=== PATIENT | female | born 1945 | race Caucasian/White ===

== ENCOUNTER 2017-08-30 13:11 | Inpatient (IN) | payer MEDICARE, BC ==
[~2017-08-30] VITALS: Ht 165.1 cm; Wt 72.6 kg
[~2017-08-30 13:11] MED LIST: ASPI81EC; BUPR100; CALCA500CH; CONEST.625; LAMICTAL; METO25ER; MULVITA; ONDA8ODT MM; OXCA300; POTASSIUM CHLORIDE 10 MEQ; RIVA1.5; TOCO1000; TRIHYD253B; VITAMIN B
[2017-09-27] MEDS ORDERED: LOSARTAN POTAS100 MG PO (11:18)
[2017-09-27] MEDS ORDERED: LOSA50 PO (11:18)
[2017-09-27] MEDS ORDERED: AMLO5 PO (11:19)
[2017-09-27] MEDS ORDERED: METO100ER PO (11:52)
[2017-09-27] MEDS ORDERED: BUSP5 PO (11:52)
[2017-09-27] MEDS ORDERED: POTCHL10ER PO (11:53)
[2017-09-27] MEDS ORDERED: ETAN50I SC (11:53)
[2017-09-27] MEDS ORDERED: CALCA400CH PO (11:54)
[2017-09-27] MEDS ORDERED: GLUC500 PO (11:54)
[2017-09-27] MEDS ORDERED: Hair, Skin & N1 EACH PO ×2 (11:54→11:55)
[2017-09-27] MEDS ORDERED: PROBIOTIC1 EAC1 PO (11:55)
[2017-09-27] MEDS ORDERED: IRON150C PO (11:55)
[2017-09-27] MEDS ORDERED: OMEGA RED PO (11:55)
[2017-09-27] MEDS ORDERED: Vitamin B Comple1 EA PO (11:56)
[2017-09-27] MEDS ORDERED: FAMO20 PO (11:56)
[2017-09-27] MEDS ORDERED: CHOL10002 PO (11:56)
[2017-09-27] MEDS ORDERED: FOLI400 PO (11:57)
[2017-09-27] MEDS ORDERED: VITAMIN B122500 MC1 PO (11:57)
[2017-09-27] MEDS ORDERED: ASPI81CH PO (11:57)
[2017-09-27] MEDS ORDERED: ACET120S PO (11:58)
[2017-09-27] MEDS ORDERED: VITAMIN C500 M1 PO (11:58)
[2017-09-27] MEDS ORDERED: ZINC15 PO (11:59)
[2017-09-27] MEDS ORDERED: VITAMIN E400 UNI1 PO (11:59)
[2017-09-27] MEDS ORDERED: MAGOXI400 PO (12:00)
[2017-09-27] MEDS ORDERED: Lysine500 MG PO (12:00)
[2017-10-19 05:21] LABS: BASOPHILS ABSOLUTE AUTO 0.01 K/mm3 (0.00-0.23); BASOPHILS PERCENT AUTO 0 % (0-2); EOSINOPHILS PERCENT AUTO 0 % (0-6); Hematocrit 33.4 % (33.0-51.0); Hemoglobin 10.8 g/dL (11.5-16.0); IMMATURE GRAN ABSOLUTE AUTO 0.02 K/mm3 (0.00-0.10); IMMATURE GRAN PERCENT AUTO 0 % (0-1); LYMPHOCYTES ABSOLUTE AUTO 1.23 K/mm3 (0.84-5.20); LYMPHOCYTES PERCENT AUTO 12 % (21-46); MONOCYTES ABSOLUTE AUTO 0.64 K/mm3 (0.16-1.47); MONOCYTES PERCENT AUTO 6 % (4-13); Mean Corpuscular HGB Conc 32.3 g/dL (31.5-36.5); Mean Corpuscular Volume 99 fL (80-100); Mean Platelet Volume 9.5 fL (9.1-12.4); NEUTROPHILS ABSOLUTE AUTO 8.31 K/mm3 (1.96-9.15); NEUTROPHILS PERCENT AUTO 81 % (41-73); Platelet Count 193 K/mm3 (150-400); RDW Coefficient Variation 13.1 % (11.7-14.2); RDW Standard Deviation 46.7 fL (35.1-46.3); Red Blood Cell Count 3.38 M/mm3 (3.80-5.20); White Blood Cell Count 10.21 K/mm3 (4.00-11.30)
[2017-10-19 05:39] LABS: Anion Gap 9 mmol/L (6-16); Blood Urea Nitrogen 17 mg/dL (8-24); Bun/Creatinine Ratio 19.3 (12.0-20.0); CO2, Blood 24 mmol/L (21-32); Calcium, Blood 8.7 mg/dL (8.5-10.1); Chloride, Blood 107 mmol/L (98-108); Creatinine, Blood 0.88 mg/dL (0.40-1.00); Glomerular Filtration Rate >60 (60-); Glucose, Blood 132 mg/dL (70-99); Magnesium, Blood 1.6 mg/dL (1.6-2.4); Potassium, Blood 4.2 mmol/L (3.5-5.5); Sodium, Blood 140 mmol/L (136-145)
[2017-10-19] MEDS ORDERED: OXYC5 PO (13:09)
[2017-10-19] MEDS ORDERED: ASPI325 PO (13:09)
[2017-10-19] MEDS ORDERED: DOCU100 PO (13:10)
== END 2017-10-19 15:30 | disposition home or self-care (01) | DRG 470 ==
LOC: SURS 10-18 05:51 → PRE IP 10-18 07:30 → SURS 10-18 11:16
PROVIDERS: Orthopaedic Surgery
PROC: 8E0YXBZ Computer Assisted Procedure of Lower Extremity (ICD-10-PCS; 2017-10-18)
PROC: 0SRB04Z Replacement of Left Hip Joint with Ceramic on Polyethylene Synthetic Substitute, Open Approach (ICD-10-PCS; principal; 2017-10-18 07:30)
DX: M16.12 Unilateral primary osteoarthritis, left hip (principal); I10 Essential (primary) hypertension; M06.9 Rheumatoid arthritis, unspecified; Z79.82 Long term (current) use of aspirin; Z79.51 Long term (current) use of inhaled steroids; Z79.899 Other long term (current) drug therapy; Z88.1 Allergy status to other antibiotic agents; Z88.5 Allergy status to narcotic agent; Z88.8 Allergy status to other drugs, medicaments and biological substances; Z87.891 Personal history of nicotine dependence
CPT/HCPCS: 36415; 72170; 80048; 83735; 85025; 86850; 86900; 86901; 88300; 94762; 97110; 97116; 97161; 97165; 97530; 97535; C1713; C1776; G8978; G8979; G8987; G8988; G8989; J0171; J0690; J0735; J1100; J1885; J2405; J2795; J3010; J7120

== ENCOUNTER → 2020-04-07 | Outpatient (CLI) | payer BC ==
[~2020-04-07] MED LIST changes: +ACET120S PO; +AMLO5 PO; +ASPI325 PO; +ASPI81CH PO; +BUSP5 PO; +CALCA400CH PO; +CHOL10002 PO; +DOCU100 PO; +ETAN50I SC; +FAMO20 PO; +FOLI400 PO; +GLUC500 PO; +Hair, Skin & N1 EACH PO; +IRON150C PO; +LOSA50 PO; +LOSARTAN POTAS100 MG PO; +Lysine500 MG PO; +MAGOXI400 PO; +METO100ER PO; +OMEGA RED PO; +OXYC5 PO; +POTCHL10ER PO; +PROBIOTIC1 EAC1 PO; +VITAMIN B122500 MC1 PO; +VITAMIN C500 M1 PO; +VITAMIN E400 UNI1 PO; +Vitamin B Comple1 EA PO; +ZINC15 PO
== END | disposition home or self-care (01) ==
LOC: OLS 16:04 → LAB 16:04 → LAB SHORT 16:04
DX: N39.0 Urinary tract infection, site not specified (principal)
CPT/HCPCS: 87077; 87086; 87186

== ENCOUNTER → 2020-12-17 | Outpatient (CLI) | payer BC ==
[2020-12-18 15:07] LABS: SARS COV-2 IGG AB Positive (Negative); SARS COV-2 IGM AB Positive (Negative)
== END ==
LOC: LAB SHORT 18:37 → LAB 18:37
PROVIDERS: Physician Assistant
DX: Z01.812 Encounter for preprocedural laboratory examination (principal); U07.1 COVID-19
CPT/HCPCS: 86769

== ENCOUNTER 2021-06-19 13:23 | Inpatient (IN) | payer MEDICARE, BC ==
[~2021-06-19] VITALS: Ht 165.1 cm; Wt 55.8 kg
[2021-06-19 15:49] LABS: BASOPHILS ABSOLUTE AUTO 0.06 K/mm3 (0.00-0.23); BASOPHILS PERCENT AUTO 1 % (0-2); EOSINOPHILS ABSOLUTE AUTO 0.17 K/mm3 (0.00-0.68); EOSINOPHILS PERCENT AUTO 2 % (0-6); Hemoglobin 13.5 g/dL (11.5-16.0); IMMATURE GRAN ABSOLUTE AUTO 0.02 K/mm3 (0.00-0.10); IMMATURE GRAN PERCENT AUTO 0 % (0-1); LYMPHOCYTES PERCENT AUTO 38 % (21-46); MONOCYTES ABSOLUTE AUTO 0.58 K/mm3 (0.16-1.47); MONOCYTES PERCENT AUTO 7 % (4-13); Mean Corpuscular HGB 31.2 pg (26.0-34.0); Mean Corpuscular HGB Conc 32.1 g/dL (31.5-36.5); Mean Corpuscular Volume 97 fL (80-100); Mean Platelet Volume 9.8 fL (9.1-12.4); NEUTROPHILS ABSOLUTE AUTO 4.44 K/mm3 (1.96-9.15); NEUTROPHILS PERCENT AUTO 53 % (41-73); Platelet Count 247 K/mm3 (150-400); RDW Coefficient Variation 11.6 % (11.7-14.2); RDW Standard Deviation 41.6 fL (35.1-46.3); Red Blood Cell Count 4.33 M/mm3 (3.80-5.20); White Blood Cell Count 8.47 K/mm3 (4.00-11.30)
[2021-06-19 16:01] LABS: Alanine Aminotransfer (ALT/SGP 105 U/L (12-78); Albumin/Globulin Ratio 0.6 (0.8-1.8); Alk Phos 87 U/L (50-136); Anion Gap 2 mmol/L (6-16); Aspartate Aminotrans (AST/SGOT 278 U/L (12-37); Bilirubin, Total 0.5 mg/dL (0.1-1.0); Blood Urea Nitrogen 20 mg/dL (8-24); Bun/Creatinine Ratio 25.8 (12.0-20.0); CO2, Blood 26 mmol/L (21-32); Calcium, Blood 9.2 mg/dL (8.5-10.1); Chloride, Blood 109 mmol/L (98-108); Creatinine, Blood 0.78 mg/dL (0.40-1.00); Glomerular Filtration Rate >60 (60-); Glucose, Blood 115 mg/dL (70-99); Potassium, Blood 3.9 mmol/L (3.5-5.5); Sodium, Blood 137 mmol/L (136-145)
[2021-06-19 16:19] LABS: International Normalized Ratio 0.99; Prothrombin Time Results 10.4 Sec (9.7-11.5)
[2021-06-19 16:48] LABS: Source, Urine Catheter
[2021-06-19 16:49] LABS: Influenza A, PCR NEGATIVE (NEGATIVE); Influenza B, PCR NEGATIVE (NEGATIVE); Resp Syncytial Virus, PCR NEGATIVE (NEGATIVE); SARS-Cov-2 (COVID-19) PCR, MMC NEGATIVE (NEGATIVE)
[2021-06-19 17:03] LABS: Appearance, Urine Clear (Clear); Bilirubin, Urine Neg (Neg); Blood, Urine Neg (Neg); Color, Urine Yellow (P-Yellow); Glucose Qualitative, Urine Neg (Neg); Ketones, Urine Neg (Neg); Leukocyte Esterase, Urine Neg (Neg); Nitrite, Urine Neg (Neg); Protein, Urine Neg (Neg); Urobilinogen, Urine NORM (Normal)
[2021-06-19] MEDS ORDERED: ENBREL SUR50 MG/1 M1 SQ (17:16)
[2021-06-19] MEDS ORDERED: B12-FOLIC ACID1 EACH PO (17:16)
[2021-06-19] MEDS ORDERED: Calcium Carbon500 MG PO (17:18)
[2021-06-19] MEDS ORDERED: FERSU300 PO (17:19)
[2021-06-19] MEDS ORDERED: MAGNESIUM OXID500 MG PO (17:21)
[2021-06-19] MEDS ORDERED: ACET500 (17:22)
--- NOTE | 2021-06-19 19:20 | NUR ---
ADMIT TO UNIT PATIENT NEW ADMIT TO UNIT FROM ER. LEFT HIP FRACTURE FROME GROUND LEVEL FALL AT HOME. LEFT LEG PAINFUL. NO BRUISING OR ABRASION NOTED TO LEFT HIP. PATIENT ALERT AND ORIENTED. LR RUNNING TO L AC IV. MEDICATED WITH 50 MCG FENTANYL FOR PAIN. NPO AT THIS TIME. PLAN FOR SURGICAL REPAIR 06/20/2020. PATIENT RESTING IN BED AT THIS TIME. REPORT GIVEN TO CASE AIDE RN.
--- NOTE | 2021-06-20 04:16 | NUR ---
SHIFT SUMMARY A/O X4. VITAL SIGNS STABLE. CONTINUED BEDREST THROUGHOUT THE NIGHT, NPO SINCE MIDNIGHT. PAIN MANAGED WELL PER EMAR. PLAN FOR SURGERY TODAY ON L HIP. WILL CONTINUE TO MONITOR AND REPORT TO ONCOMING RN.
[2021-06-20 04:53] LABS: Hematocrit 33.2 % (33.0-51.0); Hemoglobin 11.2 g/dL (11.5-16.0); Mean Corpuscular HGB 31.8 pg (26.0-34.0); Mean Corpuscular HGB Conc 33.7 g/dL (31.5-36.5); Mean Corpuscular Volume 94 fL (80-100); Platelet Count 182 K/mm3 (150-400); RDW Coefficient Variation 11.8 % (11.7-14.2); RDW Standard Deviation 40.7 fL (35.1-46.3); Red Blood Cell Count 3.52 M/mm3 (3.80-5.20); White Blood Cell Count 7.79 K/mm3 (4.00-11.30)
[2021-06-20 05:44] LABS: Alanine Aminotransfer (ALT/SGP 63 U/L (12-78); Albumin, Blood 2.4 g/dL (3.4-5.0); Albumin/Globulin Ratio 0.6 (0.8-1.8); Alk Phos 79 U/L (50-136); Anion Gap 5 mmol/L (6-16); Aspartate Aminotrans (AST/SGOT 52 U/L (12-37); Blood Urea Nitrogen 19 mg/dL (8-24); Bun/Creatinine Ratio 23.1 (12.0-20.0); CO2, Blood 28 mmol/L (21-32); Calcium, Blood 8.6 mg/dL (8.5-10.1); Chloride, Blood 108 mmol/L (98-108); Creatinine, Blood 0.82 mg/dL (0.40-1.00); Globulin, Blood 3.9 g/dL (2.2-4.0); Glomerular Filtration Rate >60 (60-); Glucose, Blood 98 mg/dL (70-99); Potassium, Blood 4.3 mmol/L (3.5-5.5); Sodium, Blood 141 mmol/L (136-145); Total Protein, Blood 6.3 g/dL (6.4-8.2)
--- NOTE | 2021-06-20 13:11 | NUR ---
SURGERY: PT TO THE OR AT THIS TIME. PT HAS BEEN MEDICATED FOR PAIN. PT DENTURES, GLASSES AND HEARING AIDS IN PT DRAWER. SALDAÑA EMPTIED PRIOR TO LEAVING FLOOR. SURGICAL PKT ON CHART. IV PATENT. WILL MONITOR WHEN RETURNS TO ROOM.
--- NOTE | 2021-06-20 18:42 | NUR ---
PT RETURNED TO ROOM 216 POST OP. PT SLEEPY BUT AROUSABLE. VSS. WEANING OFF O2. PT HAS NO COMPLAINTS OF PAIN AT THIS TIME. PAS TO BLE. IV GGT CONT FROM PACU. BULKY GAUZE DRESSING CDI. CALL LIGHT PLACED IN REACH. WILL REPORT TO PORTER RN.
[2021-06-21 05:04] LABS: BASOPHILS ABSOLUTE AUTO 0.02 K/mm3 (0.00-0.23); BASOPHILS PERCENT AUTO 0 % (0-2); EOSINOPHILS PERCENT AUTO 0 % (0-6); Hematocrit 27.7 % (33.0-51.0); Hemoglobin 9.2 g/dL (11.5-16.0); IMMATURE GRAN ABSOLUTE AUTO 0.03 K/mm3 (0.00-0.10); IMMATURE GRAN PERCENT AUTO 0 % (0-1); LYMPHOCYTES PERCENT AUTO 8 % (21-46); MONOCYTES ABSOLUTE AUTO 0.49 K/mm3 (0.16-1.47); MONOCYTES PERCENT AUTO 4 % (4-13); Mean Corpuscular HGB 31.9 pg (26.0-34.0); Mean Corpuscular HGB Conc 33.2 g/dL (31.5-36.5); Mean Corpuscular Volume 96 fL (80-100); Mean Platelet Volume 9.4 fL (9.1-12.4); NEUTROPHILS ABSOLUTE AUTO 9.73 K/mm3 (1.96-9.15); NEUTROPHILS PERCENT AUTO 87 % (41-73); Platelet Count 147 K/mm3 (150-400); RDW Coefficient Variation 11.5 % (11.7-14.2); RDW Standard Deviation 40.3 fL (35.1-46.3); Red Blood Cell Count 2.88 M/mm3 (3.80-5.20); White Blood Cell Count 11.17 K/mm3 (4.00-11.30)
[2021-06-21 05:55] LABS: Albumin, Blood 2.1 g/dL (3.4-5.0); Anion Gap 9 mmol/L (6-16); Blood Urea Nitrogen 24 mg/dL (8-24); Bun/Creatinine Ratio 28.1 (12.0-20.0); CO2, Blood 25 mmol/L (21-32); Calcium, Blood 8.5 mg/dL (8.5-10.1); Chloride, Blood 104 mmol/L (98-108); Creatinine, Blood 0.85 mg/dL (0.40-1.00); Glomerular Filtration Rate >60 (60-); Glucose, Blood 145 mg/dL (70-99); Phosphorus, Blood 4.3 mg/dL (2.5-4.9); Potassium, Blood 4.3 mmol/L (3.5-5.5); Sodium, Blood 138 mmol/L (136-145)
--- NOTE | 2021-06-21 06:25 | NUR ---
SHIFT SUMMARY: RECEIVED PT. TODAY AT 0220, AOX4 BUT EASILY FORGETS. SALDAÑA DRAINING CLEAR SHIRA URINE, LEFT AC IV ACCESS INFUSING WELL. LEFT HIP DRESSING C/D/I.PT. STATED SHE ATE ALL THE GELATINS SHE HAD ON THE TABLE WHEN SHE WAS TRANSFERED FROM PACU & WOULD LOVE TO EAT ANYTHING SERVE FOR HER TODAY.NO UNUSUALITIES NOTED, WILL CONTINUE TO MONITOR.
--- NOTE | 2021-06-21 18:00 | NUR ---
SHIFT SUMMARY: PT A&O, FORGETFUL AT TIMES BUT ANSWERS QUESTIONS AND USES CALL LIGHT APPROPRIATELY. PT LIME W/HEARING AIDS IN THE ROOM. DRESSING C/D/I. PHYSICAL THERAPY TO ROOM, PT OOB USING GB AND FWW, TOE TOUCH WT BEARING TO L LEG, SITS IN BEDSIDE CHAIR FOR MAJORITY OF THE DAY. PT USES SAME TECHNIQUE TO GET BACK TO BED. PT RECEIVING PRN PAIN MEDICATION. LAC IV LEAKING, REMOVED. NEW IV ACCESS PLACED. PT TOLERATING CARDIAC DIET WELL. WILL CONTINUE TO MONITOR AND TREAT ACCORDINGLY UNTIL CHANGE OF SHIFT.
--- NOTE | 2021-06-22 06:03 | NUR ---
PT IS UP ON HER CHAIR IN HER ROOM, REMAINED IN BED DURING THE AND WAS RESTING IN STABLE CONDITION. SHE WAS ASSISTED WITH HER CARE AND ADLS, MEDICATED ORDERED. HAS C/O PAIN AND WAS GIVEN HER PAIN MED, VERBALIZED RELIEF, NO OTHER COMPLAINTS. LEFT HIP DRESSING IS PATENT. CALL LIGHT PLACED NEAR HER AND ENCOURAGED TO CALL FOR HELP WHEN ASSISTANCE IS NEEDED SHE IS MONITORED.
--- NOTE | 2021-06-22 17:33 | NUR ---
PATIENT CURRENTLY UP IN CHAIR EATING DINNER. NO SIGNS OR SYMPTOMS ACUTE DISTRESS NOTED. PT AND OT SAW PATIENT TODAY THEY BOTH RECOMEND SN[place]. PATIENT MEDICATED FOR PAIN PER ORDERS SEE EMAR. CALL LIGHT AND WATER IN EASY REACH, ABLE TO MAKE NEEDS AND WANTS KNOWN. VISITOR AT BEDSIDE AT THIS TIME. DRESSING CHANGED TO LEFT HIP TODAY, PATIENT TOLERATED WELL. AQUACEL PLACED. WILL CONTINUE TO MONITOR.
--- NOTE | 2021-06-22 19:10 | NUR ---
RECEIVED REPORT AND ASSUMED CARE OF PT. SHE IS AWAKE AND ALERT, SITTING UP IN THE RECLINER WITH THE CALL LIGHT IN REACH. LENCHO.
--- NOTE | 2021-06-23 04:27 | NUR ---
SHIFT SUMMARY: YEHUDA IS A&OX4. VSS, NO ACUTE EVENTS OVERNIGHT. SHE IS A ONE PERSON ASSIST TO THE BEDSIDE COMMODE, TOE TOUCH WEIGHT BEARING. SHE IS TOLERATING PO INTAKE AND REPORTS ADEQUATE PAIN CONTROL WITH THE ULTRAM, ONE DOSE OF FENTANYL REQUIRED THIS SHIFT. SHE USES THE CALL LIGHT APPROPRIATELY. AQUACELL TO L THIGH C/D&I, CONTINENT OF BLADDER AND BOWEL. SHE IS LYING IN BED WITH THE CALL LIGHT IN REACH. WILL REPORT TO DAY SHIFT RN.
--- NOTE | 2021-06-24 05:48 | NUR ---
PT IS IN BED AT THIS TIME WHERE SHE REMAINS MUCH OF THE NIGHT AND IS RESTING COMFORTABLY IN STABLE CONDITION. ALERT AND ORIENTED, ASSISTED WITH BATHROOM AND TOILETING NEEDS, MEDICATED INDICATED. CALL LIGHT GIVEN TO HER AND ENCOURAGED TO CALL FOR HELP WHEN ASSISTANCEIS NEEDED SHE IS MONITORED.
--- NOTE | 2021-06-24 18:05 | NUR ---
PATIENT CURRENTLY SITTING UP IN CHAIR EATING HER MEAL. NO SIGNS OR SYMPTOMS ACUTE DISTRESS NOTED. CALL LIGHT AND WATER IN EASY REACH. ABLE TO MAKE NEEDS AND WANTS KNOWN. PATIENT IS ON ROOM AIR WHEN AWAKE AND NEEDS TO BE ON 2L PER NC WHEN SLEEPING PER RT. MEDICATED FOR PAIN PER ORDERS TODAY. PATIENT WORKED WITH PT AND OT AND DID WELL. WILL MONITOR.
--- NOTE | 2021-06-25 05:38 | NUR ---
PT IS IN BED AND IS RESTING, CONDITION IS STABLE, ALERT AND ORIENTED, ASSISTED WITH HER CARE AND ADLS, ASSISTED WITH BATHROOM AND TOILETING NEEDS AND MEDICATED INDICATED. RECOVERING FROM HIP FX REPAIR POST FALL AND R WRIST FX REPAIR. NO SWELLING OR SIGNS OF COMPLICATIONS NOTED AT THE AFFECTED EXTREMITIES EVIDENCED BY TOLERABLE MOVEMENT, PALPABLE PULSE AND < 3SECS CAP REFILL. CALL LIGHT GIVEN TO HER AND REMINDED TO CALL FOR HELP WHEN ASSISTANCE IS NEEDED SHE IS MONITORED.
--- NOTE | 2021-06-25 09:50 | NUR ---
06/25/21 0950 Lila Rodriguez VERIFICATIONS: EDIT CHART.
--- NOTE | 2021-06-25 18:32 | NUR ---
PATIENT CURRENTLY SITTING UP IN CHAIR WITH NO SIGNS OR SYMPTOMS ACUTE DISTRESS NOTED. CALL LIGHT AND WATER IN EASY REACH. ABLE TO MAKE NEEDS AND WANTS KNOWN. PATIENT DAUGHTER AT BEDSIDE AT THIS TIME. MEDICATED FOR PAIN PER ORDERS SEE EMAR. PATIENT HAD A SHOWER TODAY. PATIENT HAD A BM TODAY WELL WITH HELP OF SUPPOSITORY AND MILK OF MAG. AWAITING PLACEMENT AT SNF
[2021-06-26 05:00] LABS: Hematocrit 25.2 % (33.0-51.0); Hemoglobin 8.1 g/dL (11.5-16.0); Mean Corpuscular HGB 31.9 pg (26.0-34.0); Mean Corpuscular HGB Conc 32.1 g/dL (31.5-36.5); Mean Corpuscular Volume 99 fL (80-100); Mean Platelet Volume 9.1 fL (9.1-12.4); Platelet Count 259 K/mm3 (150-400); RDW Coefficient Variation 12.1 % (11.7-14.2); RDW Standard Deviation 43.6 fL (35.1-46.3); Red Blood Cell Count 2.54 M/mm3 (3.80-5.20); White Blood Cell Count 7.88 K/mm3 (4.00-11.30)
--- NOTE | 2021-06-26 05:01 | NUR ---
PT IS IN BED AT THIS TIME WHERE SHE REMAINS MUCH OF THE NIGHT AND IS RESTING COMFORTABLY IN STABLE CONDITION. SHE IS RECOVERING FROM LEFT HIP SURGERY POST FX/FALL. NO SIGNS OF COMPLICATIIONS NOTED IN THE AFFECTED EXTREMITY EVIDENCED BY LACK OF SWELLING OR REDNESS. LEFT PEDAL PULSE IS PALPABLE, CAP REFILL IS LESS THAN 3 SEC, AND PT IS ABLE TO MOVE OR AMBULATE WITH WALKER TOLERATED. SHE IS ASSISTED WITH CARE AND ADLS, MEDICATED INDICATED. SHE IS ASSISTED WITH HER PERSONAL CARE, ASSISTED WITH BATHROOM AND TOILETING NEEDS. HER CALL LIGHT WAS PLACED NEAR HER AND WAS ENCOURAGED TO CALL FOR HELP WHEN ASSISTANCE IS NEEDED SHE IS MONITORED.
[2021-06-26 06:09] LABS: Anion Gap 6 mmol/L (6-16); Blood Urea Nitrogen 13 mg/dL (8-24); Bun/Creatinine Ratio 17.5 (12.0-20.0); CO2, Blood 31 mmol/L (21-32); Calcium, Blood 8.4 mg/dL (8.5-10.1); Chloride, Blood 102 mmol/L (98-108); Creatinine, Blood 0.74 mg/dL (0.40-1.00); Glomerular Filtration Rate >60 (60-); Glucose, Blood 92 mg/dL (70-99); Potassium, Blood 4.2 mmol/L (3.5-5.5); Sodium, Blood 139 mmol/L (136-145)
[2021-06-26 11:32] LABS: Influenza A, PCR NEGATIVE (NEGATIVE); Influenza B, PCR NEGATIVE (NEGATIVE); Resp Syncytial Virus, PCR NEGATIVE (NEGATIVE); SARS-Cov-2 (COVID-19) PCR, MMC NEGATIVE (NEGATIVE)
--- NOTE | 2021-06-26 12:23 | NUR ---
report phoned to jovita at [facility]
--- NOTE | 2021-06-26 12:30 | NUR ---
DISCHARGED WITH NON EMERGENCY TRANSPORT TO BE TRANSPORTED TO [facility]
== END 2021-06-26 12:34 | DRG 467 ==
LOC: ER 13:23 → SURS 17:20
PROVIDERS: Emergency Medicine; Family Medicine; Internal Medicine; ADMIT Internal Medicine
PROC: 0SRS0JZ Replacement of Left Hip Joint, Femoral Surface with Synthetic Substitute, Open Approach (ICD-10-PCS; principal; 2021-06-19)
PROC: 0SPS0JZ Removal of Synthetic Substitute from Left Hip Joint, Femoral Surface, Open Approach (ICD-10-PCS; 2021-06-19)
PROC: 0QS904Z Reposition Left Femoral Shaft with Internal Fixation Device, Open Approach (ICD-10-PCS; 2021-06-19)
DX: S72.22XA Displaced subtrochanteric fracture of left femur, initial encounter for closed fracture (principal); M97.02XA Periprosthetic fracture around internal prosthetic left hip joint, initial encounter; Z20.822 Contact with and (suspected) exposure to COVID-19; D64.9 Anemia, unspecified; D69.6 Thrombocytopenia, unspecified; M06.9 Rheumatoid arthritis, unspecified; I10 Essential (primary) hypertension; Z88.5 Allergy status to narcotic agent; Z88.1 Allergy status to other antibiotic agents; Z60.2 Problems related to living alone; Z88.8 Allergy status to other drugs, medicaments and biological substances; Z79.82 Long term (current) use of aspirin; Z79.899 Other long term (current) drug therapy; Z87.891 Personal history of nicotine dependence; Z90.710 Acquired absence of both cervix and uterus; Z98.84 Bariatric surgery status; Z90.49 Acquired absence of other specified parts of digestive tract; W19.XXXA Unspecified fall, initial encounter
CPT/HCPCS: 0241U; 36415; 51702; 71045; 72170; 73502; 80048; 80053; 80069; 81003; 85025; 85027; 85610; 85730; 93005; 93010; 94760; 96374; 96375; 96376; 97110; 97116; 97162; 97166; 97530; 97535; 99285-25; A9270; C1713; C1776; J0171; J0690; J0735; J1100; J1650; J1885; J2370; J2405; J2704; J2795; J3010; J3370; J7120

== ENCOUNTER → 2024-10-11 | Outpatient (CLI) | payer BC ==
[~2024-10-11] MED LIST changes: +ACET500; +B12-FOLIC ACID1 EACH PO; +Calcium Carbon500 MG PO; +ENBREL SUR50 MG/1 M1 SQ; +FERSU300 PO; +MAGNESIUM OXID500 MG PO
[2024-10-11 19:35] LABS: BASOPHILS ABSOLUTE AUTO 0.08 K/mm3 (0.00-0.23); BASOPHILS PERCENT AUTO 1 % (0-2); EOSINOPHILS ABSOLUTE AUTO 0.23 K/mm3 (0.00-0.68); EOSINOPHILS PERCENT AUTO 3 % (0-6); Hematocrit 38.9 % (33.0-51.0); Hemoglobin 12.8 g/dL (11.5-16.0); IMMATURE GRAN ABSOLUTE AUTO 0.01 K/mm3 (0.00-0.10); IMMATURE GRAN PERCENT AUTO 0 % (0-1); LYMPHOCYTES ABSOLUTE AUTO 2.43 K/mm3 (0.84-5.20); LYMPHOCYTES PERCENT AUTO 35 % (21-46); MONOCYTES ABSOLUTE AUTO 0.75 K/mm3 (0.16-1.47); MONOCYTES PERCENT AUTO 11 % (4-13); Mean Corpuscular HGB 31.3 pg (26.0-34.0); Mean Corpuscular HGB Conc 32.9 g/dL (31.5-36.5); Mean Corpuscular Volume 95 fL (80-100); NEUTROPHILS ABSOLUTE AUTO 3.46 K/mm3 (1.96-9.15); NEUTROPHILS PERCENT AUTO 50 % (41-73); Platelet Count 188 K/mm3 (150-400); RDW Coefficient Variation 12.3 % (11.7-14.2); Red Blood Cell Count 4.09 M/mm3 (3.80-5.20); White Blood Cell Count 6.96 K/mm3 (4.00-11.30)
[2024-10-11 19:47] LABS: Albumin/Globulin Ratio 0.7 (0.8-1.8); Bilirubin, Total 0.6 mg/dL (0.1-1.0); Bun/Creatinine Ratio 44.1 (12.0-20.0); Calcium, Blood 8.8 mg/dL (8.5-10.1); Creatinine, Blood 0.59 mg/dL (0.40-1.00); Globulin, Blood 4.4 g/dL (2.2-4.0); Total Protein, Blood 7.4 g/dL (6.4-8.2)
== END ==
LOC: LAB SHORT 16:54 → LAB 16:54
PROVIDERS: Internal Medicine Rheumatology
DX: M06.9 Rheumatoid arthritis, unspecified (principal)
CPT/HCPCS: 80053; 85025; 85651